=== PATIENT | male | born 2000 | race Hispanic/Latino ===

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

== ENCOUNTER 2023-01-17 19:54 | Emergency (ER) | payer BC ==
[2023-01-17] MEDS ORDERED: Fluorescein Opthalmic Strip ONE (23:17)
[2023-01-17] MEDS ORDERED: Proparacaine 0.5% Opth 15 ML BOT ONE (23:18)
== END 2023-01-18 01:05 | disposition home or self-care (01) ==
LOC: CSHERS 19:54
DX: H18.822 Corneal disorder due to contact lens, left eye (principal); I10 Essential (primary) hypertension
CPT/HCPCS: 99283